=== PATIENT | female | born 1990 | race Hispanic/Latino ===

== ENCOUNTER 2017-03-11 23:04 | Emergency (ER) | payer SELFPAY ==
[2017-03-12 01:03] LABS: #Basophils 0.1 thou/uL (0.0-0.2); #Eosinphils 0.4 thou/uL (0.0-0.7); #Lymphocytes 3.6 thou/uL (1.20-3.40); #Monocytes 0.6 thou/uL (0.11-0.59); #Neutrophils 4.9 thou/uL (1.40-6.50); %Basophils 1.1 % (0.0-1.0); %Eosinophils 4.1 % (0.0-10.0); %Lymphocytes 37.2 % (21.0-51.0); %Monocytes 6.2 % (0.0-10.0); Hematocrit 38.2 % (36.0-47.0); Mean Platelet Volume 6.9 fL (7.4-10.4); Red Blood Cell (RBC) Count 4.58 mill/uL (4.20-5.40); White Blood Cell (WBC) Count 9.6 thou/uL (4.8-10.8)
--- NOTE | 2017-03-12 07:52 | ULT ---
PRELIMINARY REPORT/[facility]/EMERGENCY AFTER HOURS PROCEDURE: EXAM: US , Transvaginal EXAM DATE/TIME: Exam ordered 03/12/2017 12:25 AM CLINICAL HISTORY: 27 years old, female; Signs and symptoms; Lmp or gestational age (in weeks): 8wks-no fhts; Other: Va g bleeding; TECHNIQUE: Real-time transvaginal obstetrical ultrasound of the maternal pelvis and a first trimester with image documentation. Transvaginal imaging was used for better evaluation of the fetus and adne xa. COMPARISON: No relevant prior studies available. 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 No heart rate is detected suggestive of demise. No test result s are available. Uterus/cervix: The uterus measures 8.8 x 5.2 x 5.7 cm. No myometrial mass. Ovaries: The LEFT ovary measures 2.4 x 2.0 x 1.8 cm. The RIGHT ovary measures 3.2 x 1.4 x 2.3 cm. No mass. Free fluid: No free fluid. IMPRESSION: There is an intrauterine gestation with estimated gestational age of 8 weeks based on crown-rump paulette gth. No heart rate is detected suggestive of demise. Thank you for allowing us to participate in the care of your patient. Dictated and Authenticated by: Melvin Meek MD 03/12/2017 1:57 AM Central Time ([place] \T\ [place]) FINAL REPORT EMERGENCY AFTER HOURS PELVIC ULTRASOUND: Date: 03/12/17 HISTORY: Vaginal bleeding in patient with positive . IMPRESSION: Single intrauterine gestation with estimated gestational age of 8 weeks based on crown-rump length. No heart tones are detected, suggesting demise based on sonographic evaluation. Findings are in agreement with the preliminary report by [facility]. POS: [facility]
== END 2017-03-12 01:30 | disposition home or self-care (01) ==
LOC: ERS 23:04
DX: O36.4XX0 Maternal care for intrauterine death, not applicable or unspecified (principal); O03.9 Complete or unspecified spontaneous abortion without complication
CPT/HCPCS: 36415; 76856; 84702; 85025; 86900; 86901